=== PATIENT | female | born 1965 | race Caucasian/White ===

== ENCOUNTER 2016-05-13 08:00 | Inpatient (IN) | payer BC ==
[2016-05-12 10:09] VITALS: BMI 31.7
--- NOTE | 2016-05-13 08:02 | HP ---
Admitting History and Physical - Admission Chief Complaint: Right hip OA x years History of Present Illness: 50 year old female presents today in regards to her right hip. Longstanding history of right hip osteoarthritis. Patient complains of pain, stiffness, limited ROM and difficulty ambulating. Patient has failed conservative treatment including PO medication, exercise and activity modification. At this point patient would like to proceed with a right total hip arthroplasty ( MAKOplasty). History Source: Patient - Past Medical History ...LMP Comment: 2015 ...: No Psych: Yes: Other (Insomnia) - Past Surgical History Additional Past Surgical History: see written H&P - Smoking History Smoking history: Former smoker Have you smoked in the past 12 months: No Aproximately how many cigarettes per day: 40 If you are a former smoker, when did you quit?: 2006 - Alcohol/Substance Use Hx Alcohol Use: Yes (OCCASIONALLY) Home Medications - Allergies Allergies/Adverse Reactions: Allergies Allergy/AdvReac Type Severity Reaction Status Date / Time No Known Drug Allergies Allergy Verified 05/12/16 09:51 - Home Medications Home Medications: Ambulatory Orders Ondansetron [Zofran Odt -] 4 mg SL TID PRN #10 od.tablet 06/17/15 Naproxen [Naprosyn -] 500 mg PO BID 05/12/16 Zolpidem Tartrate [Ambien] 10 mg PO HS 05/12/16 Review of Systems - Review of Systems Musculoskeletal: reports: Decreased ROM, Joint Pain (right hip) Physical Examination Constitutional: Yes: Well Nourished, No Distress Eyes: Yes: Conjunctiva Clear HENT: Yes: Atraumatic, Normocephalic Neck: Yes: Supple Cardiovascular: Yes: Regular Rate and Rhythm Respiratory: Yes: Regular Gastrointestinal: Yes: Soft ...Rectal Exam: Yes: Deferred Musculoskeletal: Yes: Joint Stiffness (Right hip) Assessment/Plan 50 year old female with longstanding history of right hip osteoarthritis. Patient has failed all conservative treatment options. Proceed with a right total hip arthroplasty (MAKOplasty).
[2016-05-13] MEDS ORDERED: GABAPENTIN 300 MG CAPSULE (FP) PO ONE (12:46)
[2016-05-13] MEDS ORDERED: CEFAZOLIN 2 GM in DEXTROSE 5%-WATER - 50 ML IVPB ONE (12:46)
[2016-05-13] MEDS ORDERED: oxyCODONE HCL 10 MG SUSTAINED ACTING TABLET PO ONE (12:46)
[2016-05-13] MEDS ORDERED: CELECOXIB 200 MG CAPSULE PO ONE (12:46)
[2016-05-13] MEDS ORDERED: ROPIVICAINE 0.2%/MORPH PF/KETOROLAC - 51ML DISP.SYRINGE IA ONE (12:46)
[2016-05-13] MEDS ORDERED: TRANEXAMIC ACID 1000 MG/10 ML VIAL IVPUSH ONE (12:46)
[2016-05-13] MEDS ORDERED: MIDAZOLAM HCL 2 MG/2 ML SINGLE DOSE VIAL ONE ×4 (12:48→16:19)
[2016-05-13] MEDS ORDERED: EPINEPHrine/PF 1 MG/1 ML (1:1,000) AMPULE ONE (12:49)
[2016-05-13] MEDS ORDERED: BUPIVACAINE HCL/PF (5 MG/ML) 30 ML VIAL IJ ONE (12:49)
[2016-05-13] MEDS ORDERED: DEXAMETHASONE SOD PHOSPHATE/PF 10 MG/ML SDV ONE (12:49)
[2016-05-13] MEDS ORDERED: PROPOFOL 20 ML ONE ×6 (12:59→16:53)
[2016-05-13] MEDS ORDERED: oxyCODONE HCL 5 MG TABLET PO PRN (13:35)
[2016-05-13] MEDS ORDERED: ACETAMINOPHEN 325 MG TABLET (FP) PO SCH (13:45)
[2016-05-13] MEDS ORDERED: ONDANSETRON 4 MG/2 ML VIAL IVPB PRN (18:01)
[2016-05-13] MEDS ORDERED: MAG HYDROX/AL HYDROX/SIMETH 30 ML UNIT-DOSE CUP PO PRN (18:01)
[2016-05-13] MEDS ORDERED: MAGNESIUM HYDROX 2400MG/30ML ORAL SUSPENSION 30 ML CUP PO PRN (18:01)
--- NOTE | 2016-05-13 18:01 | OP ---
Operative Note - Note: Operative Date: 05/13/16 Pre-Operative Diagnosis: right hip OA Operation: right DEREK MAKOplasty Post-Operative Diagnosis: Same as Pre-op Surgeon: Jesus Drake Therapeutic Sales Specialist: Rosa Tyler Anesthesia: Spinal Estimated Blood Loss (mls): 200
[2016-05-13] MEDS ORDERED: LACTATED RINGERS SOLUTION 1,000 ML IV SCH (18:15)
[2016-05-13] MEDS ORDERED: ONDANSETRON 4 MG/2 ML VIAL IVPUSH ONE (18:28)
[2016-05-13] MEDS ORDERED: ONDANSETRON 4 MG/2 ML VIAL ONE (18:29)
[2016-05-13] MEDS: ACETAMINOPHEN 325 MG TABLET (FP) PO SCH (18:30)
[2016-05-13] MEDS ORDERED: KETOROLAC TROMETHAMINE 30 MG/1 ML VIAL ONE (18:30)
[2016-05-13] MEDS ORDERED: traMADol HCL 50 MG TABLET ONE (18:30)
[2016-05-13] MEDS: traMADol HCL 50 MG TABLET PO SCH (18:30)
[2016-05-13] MEDS: KETOROLAC TROMETHAMINE 30 MG/1 ML VIAL IVPUSH SCH (18:30)
[2016-05-13] MEDS: oxyCODONE HCL 5 MG TABLET PO PRN (19:35)
[2016-05-13] MEDS: GABAPENTIN 300 MG CAPSULE (FP) PO SCH (21:38)
[2016-05-13] MEDS: CEFAZOLIN 2 GM/D5W 50 ML IVPB SCH (21:38)
[2016-05-13] MEDS: SENNOSIDES/DOCUSATE COMBO (SENNA PLUS) TABLET (UD) PO SCH (21:38)
[2016-05-13] MEDS: ASCORBIC ACID 500 MG TABLET (FP) PO SCH (21:38)
[2016-05-13] MEDS: CELECOXIB 200 MG CAPSULE PO SCH (21:38)
[2016-05-13] MEDS: oxyCODONE HCL 10 MG SUSTAINED ACTING TABLET PO SCH (21:39)
[2016-05-13] MEDS: FERROUS SO4 325 MG TABLET (FP) PO SCH (21:40)
[2016-05-13] MEDS ORDERED: GABAPENTIN 300 MG CAPSULE (FP) PO SCH (22:00)
[2016-05-14] MEDS: ACETAMINOPHEN 325 MG TABLET (FP) PO SCH ×4 (00:08→17:34)
[2016-05-14] MEDS: KETOROLAC TROMETHAMINE 30 MG/1 ML VIAL IVPUSH SCH ×3 (00:10→13:15)
[2016-05-14] MEDS: traMADol HCL 50 MG TABLET PO SCH ×4 (00:11→17:33)
[2016-05-14] MEDS: oxyCODONE HCL 5 MG TABLET PO PRN ×2 (01:58→09:23)
[2016-05-14] MEDS: CEFAZOLIN 2 GM/D5W 50 ML IVPB SCH (05:40)
[2016-05-14] MEDS: ASPIRIN 325 MG TABLET PO SCH (08:08)
[2016-05-14 08:37] LABS: CALCIUM 8.9 mg/dl (8.4-10.2); COCKROFT - GAULT 113.9255; CREATININE 0.8 mg/dl (0.6-1.3)
[2016-05-14 08:53] LABS: MCH 28.9 pg (25.7-33.7); MCHC 32.9 g/dl (32.0-36.0); MEAN CELL VOLUME 87.8 fl (80-96); MEAN PLT VOLUME 10.8 fl (7.5-11.1); PLATELET COUNT 293 K/MM3 (134-434); RDW 12.9 % (11.6-15.6); WHITE BLOOD COUNT 9.8 K/mm3 (4.0-10.0)
[2016-05-14] MEDS: GABAPENTIN 300 MG CAPSULE (FP) PO SCH ×2 (09:22→21:51)
[2016-05-14] MEDS: MULTIVITAMINS (DAILY MVI) TABLET (FP) PO SCH (09:22)
[2016-05-14] MEDS: CELECOXIB 200 MG CAPSULE PO SCH ×2 (09:22→21:51)
[2016-05-14] MEDS: SENNOSIDES/DOCUSATE COMBO (SENNA PLUS) TABLET (UD) PO SCH ×2 (09:22→21:51)
[2016-05-14] MEDS: PANTOPRAZOLE 40 MG TABLET (FP) PO SCH (09:22)
[2016-05-14] MEDS: oxyCODONE HCL 10 MG SUSTAINED ACTING TABLET PO SCH ×2 (09:23→21:51)
[2016-05-14] MEDS: ASCORBIC ACID 500 MG TABLET (FP) PO SCH ×2 (09:23→21:51)
[2016-05-14] MEDS: FERROUS SO4 325 MG TABLET (FP) PO SCH ×2 (09:24→21:51)
--- NOTE | 2016-05-14 11:19 | PN ---
Progress Note (short form) - Note Progress Note: Pt seen and examined. Comfortable. AVSS Selected Entries 05/14/16 06:13 Temperature 97.9 F Pulse Rate 75 Respiratory 17 Rate Blood Pressure 109/54 O2 Sat by Pulse 99 Oximetry (%) Oxygen Delivery Nasal Cannula Method Laboratory Tests 05/14/16 05/14/16 07:00 07:00 WBC 9.8 Hgb 11.7 Hct 35.5 Plt Count 293 Sodium 135 L Potassium 4.1 Chloride 103 Carbon Dioxide 27 Anion Gap 5 L BUN 10 Creatinine 0.8 Random Glucose 108 H Calcium 8.9 Gen: NAD RLE: c/d/i, NVID A/P 50yo female POD#1 s/p R DEREK 1. PT/OOB - WBAT RLE 2. Plan for d/c home tomorrow
--- NOTE | 2016-05-14 17:29 | PN ---
Progress Note (short form) - Note Progress Note: S: pt. comfortable in a chair. no c/o O: VAS 0/10-5/10 pain A/p: pod number 1 s/p right thr 1. continue pain meds as ordered 2. no anesthetic cx
[2016-05-15] MEDS: traMADol HCL 50 MG TABLET PO SCH ×3 (00:22→12:15)
[2016-05-15] MEDS: ACETAMINOPHEN 325 MG TABLET (FP) PO SCH ×3 (00:39→12:30)
[2016-05-15 06:28] VITALS: BP 105/50; PULSE 69; TEMP 98.9
[2016-05-15 07:38] LABS: MCHC 33.8 g/dl (32.0-36.0); MEAN CELL VOLUME 88.7 fl (80-96); MEAN PLT VOLUME 9.8 fl (7.5-11.1); PLATELET COUNT 211 K/MM3 (134-434); RDW 13.1 % (11.6-15.6); WHITE BLOOD COUNT 7.4 K/mm3 (4.0-10.0)
[2016-05-15] MEDS: ASPIRIN 325 MG TABLET PO SCH (08:00)
[2016-05-15] MEDS: PANTOPRAZOLE 40 MG TABLET (FP) PO SCH (10:00)
[2016-05-15] MEDS: ASCORBIC ACID 500 MG TABLET (FP) PO SCH (10:00)
[2016-05-15] MEDS: FERROUS SO4 325 MG TABLET (FP) PO SCH (10:00)
[2016-05-15] MEDS: SENNOSIDES/DOCUSATE COMBO (SENNA PLUS) TABLET (UD) PO SCH (10:00)
[2016-05-15] MEDS: GABAPENTIN 300 MG CAPSULE (FP) PO SCH (10:00)
[2016-05-15] MEDS: CELECOXIB 200 MG CAPSULE PO SCH (10:00)
[2016-05-15] MEDS: oxyCODONE HCL 10 MG SUSTAINED ACTING TABLET PO SCH (10:00)
[2016-05-15] MEDS: MULTIVITAMINS (DAILY MVI) TABLET (FP) PO SCH (10:00)
--- NOTE | 2016-05-15 13:35 | PN ---
Progress Note (short form) - Note Progress Note: Pt seen and examined. Comfortable. AVSS Selected Entries 05/15/16 05/15/16 06:27 09:00 Temperature 98.9 F Pulse Rate 69 Respiratory 18 Rate Blood Pressure 105/50 O2 Sat by Pulse 96 Oximetry (%) Oxygen Delivery Room Air Method Laboratory Tests 05/15/16 07:29 WBC 7.4 Hgb 10.2 L D Hct 30.1 L D Plt Count 211 D Gen: NAD RLE: c/d/i, NVID A/P 50yo female POD#2 s/p R DEREK 1. PT/OOB - WBAT RLE 2. d/c home today
--- NOTE | 2016-05-15 13:36 | DS ---
Physical Examination Vital Signs: Vital Signs Temperature 98.9 F 05/15/16 06:27 Pulse Rate 69 05/15/16 06:27 Respiratory Rate 18 05/15/16 09:00 Blood Pressure 105/50 05/15/16 06:27 O2 Sat by Pulse Oximetry (%) 96 05/15/16 09:00 Labs: CBC, BMP 05/15/16 07:29 05/14/16 07:00 Discharge Summary Reason For Visit: RIGHT HIP OSTEOARTHRITIS Procedures: Principal: total hip replacement Hospital Course: Admitted for elective surgery. Procedure performed without complications. Pt received postoperative antibiotic prophylaxis and DVT ppx. Ambulated with physical therapy. Stable for discharge home with outpatient followup. Condition: Stable - Instructions Diet, Activity, Other Instructions: Dr Drake - Hip Replacement Instructions Keep the Aquacel dressing on until removed by Dr. Drake in 10-14 days - it is antibacterial and waterproof and you can shower with it on. Call the office for a follow-up appointment with Dr. Drake in 10-14 days. [phone] Take one Aspirin 325mg daily for 6 weeks to prevent blood clots in your legs. Take one Pantoprazole 40mg daily for 6 weeks to protect against heartburn and ulcers. Take Celebrex 200mg twice daily for 30 days to reduce swelling and inflammation. Take a multivitamin daily as well as an additional vitamin C supplement. Make sure you eat plenty of protein daily. You can also add in a protein shake between meals. For pain: *Mild pain (1-3/10): Take 1 Tramadol tablet every 4 hours as needed. Moderate pain (4-6/10): Take 1 Tramadol tablet and 1 Percocet tablet every 4 hours as needed. Severe pain (7-10/10): Take 1 Tramadol tablet and 2 Percocet tablets every 4 hours as needed. Activity: You can put as much weight on the operative leg as you want.~ For the first 6 weeks, all you need to do is walk around the house, go up/down stairs, and sit down/get up. After 6 weeks when everything is healed (and bone has grown into the implant) you will be sent for more intensive outpatient physical therapy. Always use a walker or cane for balance and to prevent falls. Disposition: HOME - Home Medications Comprehensive Discharge Medication List: Ambulatory Orders Zolpidem Tartrate [Ambien] 10 mg PO HS 05/12/16 Ascorbic Acid [Vitamin C -] 500 mg PO BID tablet 05/15/16 Aspirin [ASA -] 325 mg PO DAILY@0800 #40 tablet 05/15/16 Celecoxib [CeleBREX -] 200 mg PO BID #60 tab 05/15/16 Multivitamins [Multivit ([facility] Formulary)] 1 tab PO DAILY tab 05/15/16 Oxycodone HCl/Acetaminophen [Percocet 5-325 mg Tablet] 1 - 2 tab PO Q4H PRN #60 tablet MDD 10 05/15/16 Pantoprazole Sodium [Protonix -] 40 mg PO DAILY #40 tab 05/15/16 Sennosides/Docusate Sodium [Pericolace -] 1 tablet PO BID tablet 05/15/16 Tramadol HCl [Ultram -] 50 mg PO Q4H PRN #90 tablet MDD 6 05/15/16
--- NOTE | 2016-05-19 10:50 | SURG ---
Surgery Wood Machinist Note Wood Machinist: Rosa Tyler PA-C Date of Service: 05/13/16 Diagnosis: right hip OA Procedure: right DEREK MAKAdelso I was present for the entirety of the operative procedure. For further detail, please refer to operative report. Visit type - Case Type Case Type: Scheduled Admission - Emergency Emergency Visit: No - New patient This patient is new to me today: Yes Date on this admission: 05/13/16 - Critical Care Critical Care patient: No
--- NOTE | 2016-05-19 13:18 | PATH ---
Surgical Pathology Report Patient Name: EMMA HERMAN Med. Rec. #: [id number] /Age/Gender: 1965 (Age: 50) / F Account: [id number] Location: [facility] Taken: 05/13/2016 Received: 05/13/2016 Reported: 05/19/2016 Physicians: Jesus Drake M.D. Specimen(s) Received RIGHT FEMORAL HEAD Clinical History Right hip osteoarthritis Final Diagnosis FEMORAL HEAD, RIGHT, TOTAL HIP REPLACEMENT: DEGENERATIVE JOINT DISEASE. Electronically Signed Perla Martinez M.D. Gross Description Received in formalin, labeled "right femoral head," is a 4.2 4.2 x 4.0 cm. femoral head with 1.1 cm in length portion of femoral neck attached. The margin of resection is smooth. There is a 1.7 cm in greatest dimension area of eburnation present. The remaining articular surface is mejia-yellow and diffusely granular. The underlying trabecular bone is yellow and hard. Senior Market Research Analyst sections are submitted in one cassette, following decalcification. 05/14/201605/14/2016
--- NOTE | 2016-06-24 15:19 | SPEC ---
DATE OF OPERATION: 05/13/2016 PREOPERATIVE DIAGNOSIS: Right hip osteoarthritis. POSTOPERATIVE DIAGNOSIS: Right hip osteoarthritis. PROCEDURE: Right total hip replacement with MAKOplasty, robotic navigation. ATTENDING DOCTOR: Lui Hair MD MASSAGE COORDINATOR: ULI Watson ANESTHESIA: Spinal plus sedation. ESTIMATED BLOOD LOSS: 200 mL. COMPLICATIONS: None. SPECIMENS: Resected bone was sent for pathology analysis. DISPOSITION: The patient was transferred to the PACU in stable condition. IMPLANTS USED: Reydon Accolade II, size 3 femoral component, 50-mm Tritanium acetabular component, with 36 + 2.5 mm ceramic head ball, and 40-mm acetabular screw. INDICATIONS: This is a 50-year-old female who presented to the office complaining of right hip and groin pain. She was seen and examined by Dr. Hair and diagnosed with right hip osteoarthritis. She was initially treated nonoperatively, but failed management with medications, injections, and physical therapy. She was subsequently indicated for a right total hip replacement with MAKOplasty robotic navigation. The risks, benefits, and alternatives to the procedure were explained to the patient in great detail, and she elected to proceed with the surgery. DESCRIPTION OF PROCEDURE: On the day of surgery, the patient was taken to the operating room and placed on the OR table. Spinal anesthesia was administered by the anesthesiologist. The patient was then positioned in the lateral decubitus position on the table and all bony prominences were padded. An axillary roll was placed. The operative hip was then prepped and draped in the usual sterile fashion and intravenous antibiotics were given for infection prophylaxis. A surgical time-out was then performed with the team, and the patients identity, procedure, side, availability of implants, and the administration of antibiotics was confirmed. An approximately 15cm longitudinal incision was made through the skin centered on the greater trochanter of the hip. This dissection was carried down through the subcutaneous tissues to the deep fascia. This fascia was then incised and a cobra was placed around the inferior femoral neck. Electrocautery was used to reflect the anterior 40% of the gluteus medius and minimus starting at the musculotendinous junction and leaving a cuff for closure. This was reflected to reveal the capsule of the hip joint. An anterior capsulectomy was performed and the femoral head and neck was visualized. Grade 4 changes were noted diffusely throughout the joint. At this point, three small stab incisions were made superior to the main incision along the iliac crest. Three self-drilling Mikayla pins were then placed and the [employer] pelvic array was attached. Reference points on the limb were then entered into the robotic device and the limb length deficiency, offset, and femoral neck resection level were then calculated by the software. The hip was then dislocated with traction and external rotation, an oscillating saw was used to make the femoral neck cut at the level previously templated, and the femoral head was removed. Attention was then turned to the acetabulum. Retractors were then placed around the acetabulum and the labrum was removed. An acetabular checkpoint pin and the [employer] software was used to register the contours of the acetabulum. The acetabulum was then reamed in a single stage to the preoperatively templated size using the [employer] robotic arm. The appropriately sized cup was then impacted and had solid fixation as well as the preset inclination and version of 40 and 20 degrees, respectively. A polyethylene liner was then placed in the cup. Attention was then turned back to the femur, which was externally rotated for improved visualization. A femoral neck elevator was used to present the femoral neck cut, a box osteotome was used to enter the femoral canal, and a canal finder was used to go down the femoral shaft. The Chuck broaches were used sequentially until the optimal scratch fit was achieved. This correlated to the preoperatively templated size. From here, several different offset head and neck configurations were tested until excellent stability and length was obtained. These measurements were quantified using the [employer] software. All trial components were then removed, the femur was copiously irrigated, and the final components were placed. Leg length and stability were checked again and found to be excellent. Irrigation was performed again. Wound closure was started by repairing the abductor muscles with a No. 2 Fiberwire stitch in a [place] configuration passed through bone tunnels in the greater trochanter and tied over a bony bridge. This repair was then reinforced with a 0 VLoc 180 barbed suture. Next, No. 1 Polysorb and 0 VLoc 180 was used to close the fascia. The deep subcutaneous tissue was closed with No. 1 Polysorb sutures, and 2-0 Polysorb was used for the superficial subcutaneous tissue. The skin was closed using both 3-0 VLoc 90 suture in a running subcuticular fashion and SwiftSet skin adhesive. The Chuck array and pins were removed from the iliac crest and the stab incision sites were irrigated and closed with 4-0 Polysorb sutures and SwiftSet skin adhesive. Once this was completed a sterile dressing was applied. The patient was then awakened and taken to the PACU in stable condition. LUI HAIR M.D. [id number]
== END 2016-05-15 14:20 | disposition home or self-care (01) | DRG 470 ==
LOC: FM/S 09:29
PROVIDERS: ADMIT Student in an Organized Health Care Education/Training Program; ATTEND Student in an Organized Health Care Education/Training Program
PROC: 8E0W0CZ Robotic Assisted Procedure of Trunk Region, Open Approach (ICD-10-PCS; 2016-05-13)
PROC: 0SR904Z Replacement of Right Hip Joint with Ceramic on Polyethylene Synthetic Substitute, Open Approach (ICD-10-PCS; principal; 2016-05-13 11:20)
DX: M16.11 Unilateral primary osteoarthritis, right hip (principal); G47.09 Other insomnia; Z87.891 Personal history of nicotine dependence
CPT/HCPCS: 36415; 73502-TC-RT; 80048; 85027; 88304-TC; 88311-TC; 94010; 94760; 97116-GP; 97162-PG

== ENCOUNTER 2016-10-10 11:08 | Emergency (ER) | payer BC ==
[2016-10-10 11:22] VITALS: BP 131/80; PULSE 80; TEMP 98.3; BMI 32.5
[2016-10-10] MEDS ORDERED: ACETAMINOPHEN 325 MG TABLET (FP) PO ONE (11:43)
[2016-10-10] MEDS ORDERED: ACETAMINOPHEN 325 MG TABLET (FP) ONE (11:45)
--- NOTE | 2016-10-10 12:49 | PDOC ---
History of Present Illness - General Chief Complaint: Back Pain Stated Complaint: BACK PAIN Time Seen by Provider: 10/10/16 11:12 History Source: Patient Exam Limitations: No Limitations - History of Present Illness Initial Comments: 10/10/16 12:00 51-year-old female with history of herniated disks to her lumbar spine presents to the ED with complaints of left mid back intermittent sharp pain worsened with movement since awakening this morning. Patient states was babysitting her granddaughter and lifting her which she felt a burning sensation yesterday evening but did not take anything for the above and thought pain would get better. Patient states pain does not worsen throughout the night but then awoke this morning unable to move without discomfort. Patient denies anterior chest pain, shortness of breath, skin discoloration, swelling to the area, change in urine pattern, change in bowel pattern, fever or chills. Patient states took 10 mg of Flexeril which she had at home at 8am for her low back pain which didn't seem to alleviate her discomfort. Occurred: reports: this morning Severity: reports: moderate Pain Location: reports: back Method of Injury: Yes: other Modifying Factors: improves with: None Associated Symptoms (Fall): trouble walking Past History - Travel Traveled outside of the country in the last 30 days: No Close contact w/someone who was outside of country & ill: No - Past Medical History Allergies/Adverse Reactions: Allergies Allergy/AdvReac Type Severity Reaction Status Date / Time No Known Drug Allergies Allergy Verified 10/10/16 11:19 Home Medications: Ambulatory Orders Zolpidem Tartrate [Ambien] 10 mg PO HS 05/12/16 Ascorbic Acid [Vitamin C -] 500 mg PO BID tablet 05/15/16 Aspirin [ASA -] 325 mg PO DAILY@0800 #40 tablet 05/15/16 Celecoxib [CeleBREX -] 200 mg PO BID #60 tab 05/15/16 Multivitamins [Multivit ([facility] Formulary)] 1 tab PO DAILY tab 05/15/16 Oxycodone HCl/Acetaminophen [Percocet 5-325 mg Tablet] 1 - 2 tab PO Q4H PRN #60 tablet MDD 10 05/15/16 Pantoprazole Sodium [Protonix -] 40 mg PO DAILY #40 tab 05/15/16 Sennosides/Docusate Sodium [Pericolace -] 1 tablet PO BID tablet 05/15/16 Tramadol HCl [Ultram -] 50 mg PO Q4H PRN #90 tablet MDD 6 05/15/16 Anemia: No Asthma: No Cancer: No Cardiac Disorders: Yes (IRREGULAR HRT BEAT AFTER NASAL SEPTUM REPAIR NO FURTHER PROBLEMS) CVA: No COPD: No CHF: No Dementia: No Diabetes: No GI Disorders: No Disorders: No HTN: No Hypercholesterolemia: No Liver Disease: No Suicide Attempt (Hx): No Seizures: No Thyroid Disease: Yes (HYPERTHYROIDISM) - Surgical History Abdominal Surgery: Yes (CYST NEAR PANCREAS REMOVED-02/2015) Appendectomy: No Cardiac Surgery: No Cholecystectomy: No Lung Surgery: No Neurologic Surgery: No Orthopedic Surgery: No - Immunization History Immunization Up to Date: No - Psycho/Social/Smoking Cessation Hx Anxiety: No Suicidal Ideation: No Smoking History: Never smoked Have you smoked in the past 12 months: No Number of Cigarettes Smoked Daily: 40 If you are a former smoker, when did you quit?: 2007 Cigars Per Day: 0 Information on smoking cessation initiated: No Hx Alcohol Use: Yes (OCCASIONALLY) Drug/Substance Use Hx: No Substance Use Type: Alcohol Hx Substance Use Treatment: No Patient Lives Alone: No Lives with/in: spouse/SO Review of Systems - Review of Systems Able to Perform ROS?: Yes Constitutional: No: Symptoms Reported HEENTM: No: Symptoms Reported Respiratory: No: Symptoms reported Cardiac (ROS): No: Symptoms Reported ABD/GI: No: Symptoms Reported : No: Symptoms Reported Musculoskeletal: Yes: Muscle Pain. No: Joint Pain, Neck Pain Integumentary: No: Symptoms Reported Neurological: No: Symptoms reported Endocrine: No: Symptoms Reported Hematologic/Lymphatic: No: Symptoms Reported *Physical Exam - Vital Signs Last Vital Signs Temp Pulse Resp BP Pulse Ox 98.3 F 80 18 131/80 95 10/10/16 11:19 10/10/16 11:19 10/10/16 11:19 10/10/16 11:10/10/16 11:19 - Physical Exam General Appearance: Yes: Nourished, Appropriately Dressed. No: Apparent Distress HEENT: positive: EOMI, ANTIONETTE, TMs Normal, Pharynx Normal. negative: Pale Conjunctivae Neck: positive: Supple. negative: Decreased range of motion Respiratory/Chest: positive: Lungs Clear, Normal Breath Sounds. negative: Respiratory Distress, Accessory Muscle Use Cardiovascular: positive: Regular Rhythm, Regular Rate. negative: Murmur Gastrointestinal/Abdominal: positive: Soft. negative: Tenderness Musculoskeletal: positive: Muscle Spasm (left upper lumbar /lower thoracic). negative: Vertebral Tenderness Extremity: positive: Normal Capillary Refill. negative: Pedal Edema Integumentary: positive: Normal Color, Warm, Moist Neurologic: positive: Normal Mood/Affect, Motor Strength 5/5 (ambulatory) ED Treatment Course - Medications Given in the ED: ED Medications Discontinued Medications Generic Name Dose Route Start Last Admin Trade Name Jihan PRN Reason Stop Dose Admin Acetaminophen 650 mg 10/10/16 11:43 10/10/16 11:48 Tylenol - PO 10/10/16 11:44 650 mg ONCE ONE Administration Oxycodone/Acetaminophen 1 combo 10/10/16 11:43 10/10/16 11:47 Percocet 5/325 - PO 10/10/16 11:44 1 combo ONCE ONE Administration Medical Decision Making - Medical Decision Making 10/10/16 12:56 Patient with intermittent low back pain for the past 2 years. Patient states has herniations of discs in her upper lumbar region and does not take medications on a regular basis for the above. Patient did lift her granddaughter throughout the day yesterday which she states did initiate the discomfort to the area. Patient on exam had reproducible left thoracic pain to the paraspinous muscles at T12-L1 level. Skin otherwise intact. Patient had no CVA tenderness on exam or difficulty breathing but states pain is worsened with movement and deep breathing. Patient was ordered for 1 Percocet and Tylenol. 10/10/16 15:24 Patient had to receive a dose of Valium along with an injection of Toradol for moderate relief of discomfort. Patient is now ambulatory to the bathroom with moderate to mild discomfort. Patient to be discharged home with the same regimen and supportive care junctions given. *DC/Admit/Observation/Transfer Diagnosis at time of Disposition: Back spasm - Discharge Dispostion Disposition: HOME Condition at time of disposition: Improved - Referrals Referrals: Angus nSyder [Primary Care Provider] - - Patient Instructions Printed Discharge Instructions: DI for Back Spasm Additional Instructions: At this time I do recommend to continue the same regimen at home applying ice to the affected area but allowing yourself to move about to avoid stiffening. his symptoms worsen or return you may come back to the ER . otherwise follow up with her primary care physician.
[2016-10-10] MEDS ORDERED: diazePAM 5 MG TABLET PO ONE (13:12)
[2016-10-10] MEDS ORDERED: diazePAM 5 MG TABLET ONE (13:16)
[2016-10-10] MEDS ORDERED: KETOROLAC TROMETHAMINE 60 MG/2 ML VIAL IM ONE (13:50)
[2016-10-10] MEDS ORDERED: KETOROLAC TROMETHAMINE 60 MG/2 ML VIAL ONE (13:58)
== END 2016-10-10 15:53 | disposition home or self-care (01) ==
LOC: JER 11:08
PROC: 3E0233Z Introduction of Anti-inflammatory into Muscle, Percutaneous Approach (ICD-10-PCS; principal; 2016-10-10)
DX: M62.830 Muscle spasm of back (principal); X50.0XXA Overexertion from strenuous movement or load, initial encounter; Y93.F2 Activity, caregiving, lifting; Y92.89 Other specified places as the place of occurrence of the external cause
CPT/HCPCS: 99282-25

== ENCOUNTER 2017-12-27 10:41 | Emergency (ER) | payer BC ==
--- NOTE | 2017-12-27 10:54 | PDOC ---
History of Present Illness - General Chief Complaint: Wound Stated Complaint: cyst - History of Present Illness Initial Comments: The patient is a 52F w/ a history of peripancreatic cyst s/p removal who presents for evaluation of a left labial mass that has been present for the past three weeks. She tried placing warm compresses on the area with some initial improvement and subsequent exacerbation. She denies noticing any drainage from the site despite trying to express fluid manually. She denies having had this lesions procedurally opened/expressed previously. Denies fevers, chills, TAVARES, chest pain, SOB, abdominal pain, dysuria, vaginal discharge, drainage from the affected area, or any other areas of concern 12/27/17 12:41 Past History - Past Medical History Allergies/Adverse Reactions: Allergies Allergy/AdvReac Type Severity Reaction Status Date / Time No Known Drug Allergies Allergy Verified 12/27/17 11:05 Home Medications: Ambulatory Orders NK [No Known Home Medication] 12/27/17 Anemia: No Asthma: No Cancer: No Cardiac Disorders: Yes (IRREGULAR HRT BEAT AFTER NASAL SEPTUM REPAIR NO FURTHER PROBLEMS) CVA: No COPD: No CHF: No Dementia: No Diabetes: No GI Disorders: No Disorders: No HTN: No Hypercholesterolemia: No Liver Disease: No Seizures: No Thyroid Disease: Yes (HYPERTHYROIDISM) - Surgical History Abdominal Surgery: Yes (CYST NEAR PANCREAS REMOVED-02/2015) Appendectomy: No Cardiac Surgery: No Cholecystectomy: No Lung Surgery: No Neurologic Surgery: No Orthopedic Surgery: No - Immunization History Immunization Up to Date: No - Suicide/Smoking/Psychosocial Hx Smoking History: Never smoked Have you smoked in the past 12 months: No Number of Cigarettes Smoked Daily: 40 If you are a former smoker, when did you quit?: 2007 Cigars Per Day: 0 Hx Alcohol Use: Yes (OCCASIONALLY) Drug/Substance Use Hx: No Substance Use Type: Alcohol Hx Substance Use Treatment: No Review of Systems - Review of Systems Able to Perform ROS?: Yes Comments:: GENERAL/CONSTITUTIONAL: No fever or chills. No weakness HEAD, EYES, EARS, NOSE AND THROAT: No change in vision. No ear pain or discharge. No sore throat CARDIOVASCULAR: No chest pain or shortness of breath RESPIRATORY: No cough, wheezing, or hemoptysis GASTROINTESTINAL: No nausea, vomiting, diarrhea or constipation GENITOURINARY: No dysuria, frequency, or change in urination MUSCULOSKELETAL: No joint or muscle swelling or pain. No neck or back pain SKIN: No rash NEUROLOGIC: No headache, vertigo, loss of consciousness, or change in strength/ sensation ENDOCRINE: No increased thirst. No abnormal weight change HEMATOLOGIC/LYMPHATIC: No anemia, easy bleeding, or history of blood clots ALLERGIC/IMMUNOLOGIC: No hives or skin allergy 12/27/17 12:37 Is the patient limited Yakut proficient: No *Physical Exam - Vital Signs Vital Signs Temp Pulse Resp BP Pulse Ox 98.8 F 86 18 146/94 98 12/27/17 10:42 12/27/17 10:42 12/27/17 10:42 12/27/17 10:42 12/27/17 10:42 12/27/17 12:35 - Physical Exam Comments: GENERAL: Awake, alert, and fully oriented, in no acute distress HEAD: No signs of trauma, normocephalic, atraumatic EYES: PERRLA, EOMI, sclera anicteric, conjunctiva clear ENT: Hearing grossly normal, nares patent, oropharynx clear without exudates. Moist mucosa LUNGS: No distress, speaks full sentences, clear to auscultation bilaterally HEART: Regular rate and rhythm, normal S1 and S2, no murmurs, rubs or gallops, peripheral pulses normal and equal bilaterally ABDOMEN: Soft, nontender, normoactive bowel sounds. No guarding, no rebound EXTREMITIES : Normal inspection, Normal range of motion, no edema. No clubbing or cyanosis NEUROLOGICAL: Cranial nerves II through XII grossly intact. Normal speech, normal gait, no focal sensorimotor deficits SKIN: L labial abscess, 1.5cm x 1.5cm with fluctuance; no streaking from the affected area; no active drainage 12/27/17 12:35 Procedures - Incision and Drainage I&D Site: Left: Other (Labial) Anesthesia: 1% Lidocaine Volume(ml): 3 Blade Size: 11 Attempts: 1 Iodinated Packin/4 in Complications: none Dressing: Yes (dry gauze) Progress: Indication: Abscess Aadc Plans Staff Officer: Homer Martinez MD Artists' Model: Dr. Ch Indications, risks, and benefits explained to patient and verbal informed consent obtained. Correct patient and procedure type was verified. 1) The patient was anesthetized using 3 cc lidocaine 1% w/epinephrine 2) Abscess Location: Left labia 3) Abscess Size: 1.5cm x 1.5cm 4) Procedure description: 1 incision was made with an 11 blade. Approximately 2cc of purulent material was expressed. Wound was packed with 1/4in iodoform and dry gauze was placed over. 5) Culture specimen(s) obtained and sent for testing? No A clean dressing was applied. The patient tolerated the procedure with some discomfort. 12/27/17 12:33 Medical Decision Making - Medical Decision Making The patient is a 52F w/ a history of peripancreatic cyst, s/p neck cyst removal , who presents for evaluation of left labial recurrent cyst concerning for abscess Left labial abscess -s/p I&D. Please refer to procedure note for full details -Wound care instructions given Plan for D/C w/ PCP and OBGYN referrals Discharge instructions and return precautions given Patient is in agreement and verbalized understanding Dispo: Home 12/27/17 12:37 *DC/Admit/Observation/Transfer Diagnosis at time of Disposition: Labial abscess - Discharge Dispostion Disposition: HOME Condition at time of disposition: Improved Decision to Admit order: No - Referrals Referrals: Nyasia Hadley MD [Staff Physician] - [facility] – [place] [facility] [Provider Group] Leidy Olmstead MD [Provisional Medical Staff] - Nisa White MD [Non Staff, Medical] - Mariangel Robertson MD [Staff Physician] - - Patient Instructions Printed Discharge Instructions: DI for Incision and Drainage of a Skin Abscess Additional Instructions: You were seen in the Emergency Department today for a left labial abscess. The abscess was drained and packed with iodoform. Remove the packing after three days. Please return to the Emergency Department or follow up with a primary or OBGYN within 3 days for wound check. Review the handout provided at discharge. Return to the Emergency Department if you develop fevers/chills, worsening pain , persistent bleeding from the wound, worsening swelling or redness near the wound, or any new/concerning symptoms. - Post Discharge Activity
[2017-12-27 11:03] VITALS: BP 146/94; PULSE 86; TEMP 98.8; BMI 32.5
--- NOTE | 2017-12-27 11:43 | PDOC ---
Attending Attestation - Resident Resident Name: Homer Martinez - ED Attending Attestation I have performed the following: I have examined & evaluated the patient, The case was reviewed & discussed with the resident, I agree w/resident's findings & plan - HPI HPI: 12/27/17 11:40 52-year-old female with no significant past medical history presents with left labial cyst intermittently for several weeks, worsening over 2-3 days. Last shaved the area about 3 weeks ago, has had intermittent discomfort and swelling since then, attempted to drain it a few days ago and it has acutely worsened over the last 2 or 3 days, presenting now with painful swelling. No pus or bleeding, no fevers or chills, no significant expansion of the redness or swelling. No history of known MRSA, has had a cyst drained from her right neck in the past but never had a labial cyst or abscess drained. No fevers or chills, no vaginal discharge or bleeding. - Physicial Exam PE: 12/27/17 11:41 Vital signs normal Well-appearing Perineum: Exam performed with nurse library information technician in the room, patient has indurated and fluctuance 2 cm external left labial abscess, no surrounding cellulitis and no significant labial swelling. No notable lymphadenopathy, vaginal mucosa is otherwise normal-appearing. - Medical Decision Making 12/27/17 11:42 52-year-old female with external left labial abscess, otherwise uncomplicated without evidence of bacteremia or sepsis. Likely infected hair follicle. 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
== END 2017-12-27 12:13 | disposition home or self-care (01) ==
LOC: FER 10:41
PROC: 0U9M0ZZ Drainage of Vulva, Open Approach (ICD-10-PCS; principal; 2017-12-27)
DX: N76.4 Abscess of vulva (principal); E05.90 Thyrotoxicosis, unspecified without thyrotoxic crisis or storm
CPT/HCPCS: 99283-25

== ENCOUNTER 2019-01-02 08:37 | Emergency (ER) | payer BC ==
[2019-01-02] MEDS ORDERED: KETOROLAC TROMETHAMINE 30 MG/1 ML VIAL IVPUSH ONE (08:59)
[2019-01-02 09:01] VITALS: TEMP 98; BMI 33.5
--- NOTE | 2019-01-02 09:10 | PDOC ---
History of Present Illness - General Chief Complaint: Pain, Acute Stated Complaint: BACK PAIN Time Seen by Provider: 01/02/19 08:56 History Source: Patient - History of Present Illness Timing/Duration: reports: getting worse Abdominal Pain Onset Location: reports: flank Past History - Past Medical History Allergies/Adverse Reactions: Allergies Allergy/AdvReac Type Severity Reaction Status Date / Time No Known Drug Allergies Allergy Verified 01/02/19 08:53 Home Medications: Ambulatory Orders Cyclobenzaprine HCl [Flexeril 10 mg] 10 mg PO HS #9 tablet 01/02/19 Ibuprofen [Motrin -] 800 mg PO Q6H #30 tablet 01/02/19 Tramadol HCl 50 mg PO Q6H #15 tablet MDD 200 mg 01/02/19 Anemia: No Asthma: No Cancer: No Cardiac Disorders: Yes (IRREGULAR HRT BEAT AFTER NASAL SEPTUM REPAIR NO FURTHER PROBLEMS) CVA: No COPD: No CHF: No Dementia: No Diabetes: No GI Disorders: No Disorders: No HTN: No Hypercholesterolemia: No Liver Disease: No Seizures: No Thyroid Disease: Yes (HYPERTHYROIDISM) - Surgical History Abdominal Surgery: Yes (CYST NEAR PANCREAS REMOVED-02/2015) Appendectomy: No Cardiac Surgery: No Cholecystectomy: No Lung Surgery: No Neurologic Surgery: No Orthopedic Surgery: No - Immunization History Immunization Up to Date: No - Psycho Social/Smoking Cessation Hx Smoking History: Never smoked Have you smoked in the past 12 months: No Number of Cigarettes Smoked Daily: 40 If you are a former smoker, when did you quit?: 2007 Cigars Per Day: 0 Hx Alcohol Use: Yes (OCCASIONALLY) Drug/Substance Use Hx: No Substance Use Type: Alcohol Hx Substance Use Treatment: No Abd/GI Specific PMHX - Complaint Specific PMHX GERD: No Pancreatitis: No Review of Systems - Review of Systems Constitutional: No: Fever ABD/GI: No: Blood Streaked Bowels, Constipated, Diarrhea, Nausea, Vomiting, Abdominal cramping : Yes: Flank Pain. No: Burning, Dysuria, Discharge, Frequency, Hematuria *Physical Exam - Vital Signs Last Vital Signs Temp Pulse Resp BP Pulse Ox 98.0 F 80 16 156/84 99 01/02/19 08:49 01/02/19 08:49 01/02/19 08:49 01/02/19 08:49 01/02/19 08:49 - Physical Exam General Appearance: Yes: Moderate Distress HEENT: positive: Normal Voice Neck: positive: Supple Respiratory/Chest: negative: Respiratory Distress Gastrointestinal/Abdominal: positive: Soft. negative: Tender Musculoskeletal: positive: CVA Tenderness, CVA Tenderness (L) Extremity: positive: Normal Inspection Integumentary: positive: Dry, Warm Neurologic: positive: Fully Oriented, Alert, Normal Mood/Affect ED Treatment Course - LABORATORY CBC & Chemistry Diagram: 01/02/19 09:30 01/02/19 09:30 - RADIOLOGY Radiology Studies Ordered: Category Date Time Status ABDOMEN & PELVIS CT W/O CONTR [CT] Stat CT Scan 01/02/19 09:00 Ordered Medical Decision Making - Medical Decision Making 01/02/19 09:04 53 yo F, s/p hysterectomy remotely, pancreatic cyst, chronic lower back pain, here w/ worsening L flank pain x 4 days. States pain was so severe this a.m she was unable to get out of bed, worse w/ movement. Denies nausea, vomiting, dysuria, hematuria or change in bowel movements. No recent trauma or other inciting factors. Took dose of naproxen w/ no relief. States current pain does not feel like her chronic back pain which is usually right lower back radiating to her leg and has not had that pain for 2 years. States she had MRI for her chronic back pain in the past that was normal see exam L flank pain ?MSK, r/o stone -pain control -labs -CT -reassess 01/02/19 12:[address] unremarkable, no e/o stone. Patient reports feeling better with meds and states she is okay going home with pain control and will follow-up with her PMD Discharge - Discharge Information Problems reviewed: Yes Clinical Impression/Diagnosis: Flank pain Condition: Improved Disposition: HOME - Additional Discharge Information Prescriptions: Cyclobenzaprine HCl [Flexeril 10 mg] 10 mg PO HS #9 tablet Ibuprofen [Motrin -] 800 mg PO Q6H #30 tablet Tramadol HCl 50 mg PO Q6H #15 tablet MDD 200 mg - Follow up/Referral - Patient Discharge Instructions Patient Printed Discharge Instructions: DI for Low Back Pain Additional Instructions: Your labs and CT were normal here. Please start taking Motrin and Flexeril for pain and if you need something stronger take tramadol as needed. Please follow-up with your PMD - Post Discharge Activity Work/Back to School Note: Back to Work
[2019-01-02] MEDS ORDERED: KETOROLAC TROMETHAMINE 30 MG/1 ML VIAL ONE (09:50)
[2019-01-02 09:53] LABS: BASO % 0.7 % (0-2.0); EOS % 2.4 % (0-4.5); HEMATOCRIT 40.3 % (32.4-45.2); HEMOGLOBIN 13.4 GM/dL (10.7-15.3); LYMPH % 22.7 % (8-40); MCH 29.4 pg (25.7-33.7); MCHC 33.2 g/dl (32.0-36.0); MEAN CELL VOLUME 88.5 fl (80-96); MEAN PLT VOLUME 9.2 fl (7.5-11.1); NEUT % 66.2 % (42.8-82.8); PLATELET COUNT 320 K/MM3 (134-434); RBC 4.56 M/mm3 (3.60-5.2); RDW 13.6 % (11.6-15.6); URINE APPEARANCE CLEAR; URINE BILIRUBIN NEGATIVE (NEGATIVE); URINE COLOR YELLOW; URINE GLUCOSE (UA) NEGATIVE (NEGATIVE); URINE KETONE NEGATIVE (NEGATIVE); URINE LEUK ESTERASE NEGATIVE (NEGATIVE); URINE NITRITE NEGATIVE (NEGATIVE); URINE PROTEIN NEGATIVE (NEGATIVE); URINE UROBILINOGEN 0.2 mg/dL (0.2-1.0)
[2019-01-02 10:22] LABS: ALBUMIN 4.3 g/dl (3.4-5.0); BILIRUBIN,TOTAL 0.3 mg/dL (0.2-1); BLOOD UREA NITROGEN 18.3 mg/dL (7-18); CALCIUM 9.4 mg/dL (8.5-10.1); CREATININE 0.8 mg/dL (0.55-1.3); POTASSIUM 4.1 mmol/L (3.5-5.1); TOT PROT 7.9 g/dl (6.4-8.2)
[2019-01-02] MEDS ORDERED: morphine CARPU-JECT 4 MG/1 ML DISP.SYRIN IVPUSH ONE (11:00)
[2019-01-02] MEDS ORDERED: MORPHINE SULFATE 2 MG/ML VIAL ONE (11:03)
[2019-01-02 12:55] VITALS: BP 140/70; PULSE 70
== END 2019-01-02 12:55 | disposition home or self-care (01) ==
LOC: JER 08:37
PROC: 3E033NZ Introduction of Analgesics, Hypnotics, Sedatives into Peripheral Vein, Percutaneous Approach (ICD-10-PCS; principal; 2019-01-02)
PROC: 3E0333Z Introduction of Anti-inflammatory into Peripheral Vein, Percutaneous Approach (ICD-10-PCS; 2019-01-02)
DX: E05.90 Thyrotoxicosis, unspecified without thyrotoxic crisis or storm (principal); R10.32 Left lower quadrant pain; M54.5 Low back pain; G89.29 Other chronic pain; Z87.19 Personal history of other diseases of the digestive system; Z90.710 Acquired absence of both cervix and uterus
CPT/HCPCS: 36415; 74176-TC; 80053; 81003; 85025; 87086; 99283-25

== ENCOUNTER 2019-04-12 20:05 | Emergency (ER) | payer BC ==
[2019-04-12 20:08] VITALS: TEMP 97.5; BMI 35.2
--- NOTE | 2019-04-12 20:08 | PDOC ---
Rapid Medical Evaluation Time Seen by Provider: 04/12/19 20:06 Medical Evaluation: Allergies Allergy/AdvReac Type Severity Reaction Status Date / Time No Known Drug Allergies Allergy Verified 01/02/19 08:53 04/12/19 20:07 I have performed a brief in-person evaluation of this patient. The patient presents with a chief complaint of: palpitations, nausea since today Pertinent physical exam findings: VSS I have ordered the following: ekg The patient will proceed to the ED for further evaluation. Discharge Disposition - Diagnosis Palpitations - Referrals - Patient Instructions - Post Discharge Activity
--- NOTE | 2019-04-12 20:20 | PDOC ---
History of Present Illness - General Chief Complaint: Palpitations Stated Complaint: PALPITATIONS / NAUSEA Time Seen by Provider: 04/12/19 20:06 - History of Present Illness Initial Comments: The pt is a 53F w/ a history of anxiety, s/p HYS, s/p BTL, s/p pancreatic cyst removal who presents for evaluation of 10 hours of palpitations and 2-3 hours of swallowing discomfort. She endorses associated nausea. She denies chest pain, trouble breathing, anxiety, vomiting, diarrhea, dysuria, hematuria, or changes in sensation/strength. She has not tried taking anything for her symptoms. Meds: Denies SH: Social EtOH, Denies tobacco or illicit drug use 04/12/19 20:21 Past History - Past Medical History Allergies/Adverse Reactions: Allergies Allergy/AdvReac Type Severity Reaction Status Date / Time No Known Drug Allergies Allergy Verified 04/12/19 20:09 Home Medications: Ambulatory Orders Cyclobenzaprine HCl [Flexeril 10 mg] 10 mg PO HS #9 tablet 01/02/19 Ibuprofen [Motrin -] 800 mg PO Q6H #30 tablet 01/02/19 Tramadol HCl 50 mg PO Q6H #15 tablet MDD 200 mg 01/02/19 Anemia: No Asthma: No Cancer: No Cardiac Disorders: Yes (IRREGULAR HRT BEAT AFTER NASAL SEPTUM REPAIR NO FURTHER PROBLEMS) CVA: No COPD: No CHF: No Dementia: No Diabetes: No GI Disorders: No Disorders: No HTN: No Hypercholesterolemia: No Liver Disease: No Seizures: No Thyroid Disease: Yes (HYPERTHYROIDISM) - Surgical History Abdominal Surgery: Yes (CYST NEAR PANCREAS REMOVED-02/2015) Appendectomy: No Cardiac Surgery: No Cholecystectomy: No Lung Surgery: No Neurologic Surgery: No Orthopedic Surgery: No - Immunization History Immunization Up to Date: No - Psycho Social/Smoking Cessation Hx Smoking History: Never smoked Have you smoked in the past 12 months: No Number of Cigarettes Smoked Daily: 40 If you are a former smoker, when did you quit?: 2006 Cigars Per Day: 0 Hx Alcohol Use: Yes (OCCASIONALLY) Drug/Substance Use Hx: No Substance Use Type: Alcohol Hx Substance Use Treatment: No Review of Systems - Review of Systems Able to Perform ROS?: Yes Comments:: GENERAL/CONSTITUTIONAL: No fever or chills. No weakness HEAD, EYES, EARS, NOSE AND THROAT: No change in vision. No change in hearing. No sore throat CARDIOVASCULAR: No chest pain or shortness of breath RESPIRATORY: Denies cough, hemoptysis GASTROINTESTINAL: No vomiting, diarrhea or constipation GENITOURINARY: No dysuria, frequency, or change in urination MUSCULOSKELETAL: No joint or muscle swelling or pain. No neck or back pain SKIN: No rash NEUROLOGIC: No headache, vertigo, loss of consciousness, or change in strength/sensation ENDOCRINE: No increased thirst. No abnormal weight change HEMATOLOGIC/LYMPHATIC: No anemia, easy bleeding, or history of blood clots ALLERGIC/IMMUNOLOGIC: No hives or skin allergy 04/12/19 20:20 Is the patient limited Kuwaiti proficient: No *Physical Exam - Vital Signs Last Vital Signs Temp Pulse Resp BP Pulse Ox 97.5 F L 79 18 169/81 98 04/12/19 20:06 04/12/19 20:06 04/12/19 20:06 04/12/19 20:06 04/12/19 20:06 - Physical Exam GENERAL: Awake, alert, and oriented to person/place/time, in no acute distress HEAD: No signs of trauma, normocephalic, atraumatic EYES: PERRLA, EOMI, sclera anicteric, conjunctiva clear ENT: Hearing grossly normal, nares patent, oropharynx clear without exudates. Moist mucosa LUNGS: No distress, speaks in full sentences, clear to auscultation bilaterally HEART: Regular rate and rhythm, normal S1 and S2, no murmurs appreciated, peripheral pulses normal and equal bilaterally ABDOMEN: Soft, nontender, normoactive bowel sounds. No guarding, no rebound EXTREMITIES: Normal inspection, Normal range of motion, no edema. No clubbing or cyanosis NEUROLOGICAL: Cranial nerves II through XII grossly intact. Normal speech, normal gait, no focal sensorimotor deficits SKIN: Warm, Dry 04/12/19 20:20 ED Treatment Course - LABORATORY CBC & Chemistry Diagram: 04/12/19 21:00 04/12/19 21:00 Medical Decision Making - Medical Decision Making The pt is a 53F w/ a history of anxiety, s/p HYS, s/p BTL, s/p pancreatic cyst removal who presents for evaluation of 10 hours of palpitations and 2-3 hours of swallowing discomfort. ED Course CMP, CBC, Trop I, TSH, D-dimer CXR ECG ECG w/ NSR; HR 72; QTc 422; No axis deviation; no OSCAR 04/12/19 20:37 CXR, ED staff read, no PNA, no effusion, no PNX Lytes unremarkable No anemia No leukocytosis No CLAUDIA LFTs unremarkable D-dimer wnl TSH elevated, will obtain free T4 Pt w/ TAVARES and nausea -Will give Ofirmev and Reglan 04/12/19 23:23 Free T4 wnl 04/12/19 23:28 Results discussed with patient Pt feels improved at this time Plan for D/C w/ PCP f/u Discharge instructions and return precautions given Patient in agreement and verbalized understanding Dispo: Home 04/12/19 23:48 Discharge - Discharge Information Problems reviewed: Yes Clinical Impression/Diagnosis: Palpitations Condition: Stable - Admission No - Follow up/Referral Referrals: Raysa Leung MD [Primary Care Provider] - - Patient Discharge Instructions Patient Printed Discharge Instructions: DI for Palpitations Additional Instructions: You were seen in the Emergency Department for evaluation of palpitations your labs and imaging were overall unremarkable. Review the handout provided at discharge. Follow up with your primary care provider within the week. Return to the Emergency Department if you develop fevers, chest pain, trouble breathing, vomiting, worsening symptoms, or any new/concerning symptoms. - Post Discharge Activity Work/Back to School Note: Back to Work
[2019-04-12] MEDS ORDERED: LACTATED RINGERS SOLUTION 1000 ML INFUS.BAG IV ONE (20:31)
[2019-04-12] MEDS ORDERED: ONDANSETRON 4 MG/2 ML VIAL IVPUSH ONE (20:31)
--- NOTE | 2019-04-12 20:44 | PDOC ---
Documentation entered by Chad Constantino SCRIBE, acting as scribe for Mary Jackson DO. Mary Jackson DO: This documentation has been prepared by the Dougie mcrae Daniel, SCRIBE, under my direction and personally reviewed by me in its entirety. I confirm that the documentation accurately reflects all work, treatment, procedures, and medical decision making performed by me. Attending Attestation - Resident Resident Name: KencharleneHomer - ED Attending Attestation I have performed the following: I have examined & evaluated the patient, The case was reviewed & discussed with the resident, I agree w/resident's findings & plan, Exceptions are as noted - HPI HPI: 04/12/19 21:28 The patient is a 53 year old female with a past medical history of anxiety, hysterectomy, bilateral tubal ligation, and pancreatic cyst removal here today for evaluation of palpitations. She states that she has had palpitations for 10 hours and notes associated swallowing discomfort for 2-3 hours and nausea. She notes having palpitations in past during anxiety attacks but states that she is not having an anxiety attack now. Patient denies headache, lightheadedness. Denies fever, chills. Denies chest pain, shortness of breath. Denies vomiting, diarrhea, abdominal pain. Allergies: NKDA PCP: Raysa Leung - Physicial Exam PE: 04/12/19 21:35 Constitutional: Awake, alert, oriented. No acute distress. Head: Normocephalic. Atraumatic Eyes: PERRL. EOMI. Conjunctivae are not pale. ENT: Mucous membranes are moist and intact. Posterior pharynx without exudates or erythema. Uvula midline. Neck: Supple. Full ROM. No lymphadenopathy. Cardiovascular: Regular rate. Regular rhythm. S1, S2 regular. Distal pulses are 2+ and symmetric. Pulmonary/Chest: No evidence of respiratory distress. Clear to auscultation bilaterally No wheezing, rales or rhonchi. Abdominal: Soft and non-distended. There is no tenderness. No rebound, guarding or rigidity. No organomegaly. No palpable masses. Good bowel sounds. Back: No CVA tenderness. Musculoskeletal: No edema. No cyanosis. No clubbing. Full range of motion in all extremities. No calf tenderness. Radial/pedal pulses are intact and 2+ bilaterally Skin: Skin is warm and dry. No petechiae. No purpura. Neurological: Alert and oriented to person, place, and time. Cranial nerves II-XII are grossly intact. Normal speech. Strength is grossly symmetric. No sensory deficits. Psychiatric: Good eye contact. Normal interaction, affect and behavior. - Medical Decision Making 04/12/19 20:44 I, Dr. Mary Jackson, DO, attest that this document has been prepared under my direction and personally reviewed by me in its entirety. I further attest, that it accurately reflects all work, treatment, procedures and medical decision-making performed by me. 04/12/19 21:43 a/p: 53yo female with palpitations - currently feeling them since 9am today -pt states she feels an extra beat in her chest -no cp -no sob -has assoc nausea, no vomiting and a feeling of difficulty swallowing - but pt tolerating secretions and has been eating and drinking water all day -will send labs, ekg, dimer - recent travel to [place] and [place], brother with recent heart attack -pt currently in nad -will monitor and reassess 04/12/19 23:33 free t4 normal elevated tsh neg dimer and trop electrolytes reviewed 04/12/19 23:48 pt feeling better concerned because her brother had an NE 2 weeks ago resident discussed labs and imaging answered all questions stable for dc to home and follow up with pmd Heart Score/ECG Review - ECG Intrepretation Comment:: 04/12/19 20:44 sinus at 72, nl axis, nl interval, no acute st/t wave findings
[2019-04-12] MEDS ORDERED: ONDANSETRON 4 MG/2 ML VIAL ONE (20:58)
[2019-04-12 21:55] LABS: BASO % 0.8 % (0-2.0); EOS % 2.5 % (0-4.5); HEMATOCRIT 37.8 % (32.4-45.2); HEMOGLOBIN 12.4 GM/dL (10.7-15.3); LYMPH % 27.7 % (8-40); MCH 29.6 pg (25.7-33.7); MCHC 32.8 g/dl (32.0-36.0); MEAN CELL VOLUME 90.3 fl (80-96); MEAN PLT VOLUME 10.1 fl (7.5-11.1); MONO % 9.8 % (3.8-10.2); NEUT % 59.2 % (42.8-82.8); PLATELET COUNT 274 K/MM3 (134-434); RBC 4.19 M/mm3 (3.60-5.2); RDW 13.8 % (11.6-15.6); WHITE BLOOD COUNT 5.6 K/mm3 (4.0-10.0)
[2019-04-12 22:53] LABS: ALK PHOS 91 U/L (45-117); ANION GAP 5 MMOL/L (8-16); BILIRUBIN,TOTAL 0.3 mg/dL (0.2-1); BLOOD UREA NITROGEN 14.6 mg/dL (7-18); CALCIUM 9.3 mg/dL (8.5-10.1); CHLORIDE 107 mmol/L (98-107); CO2 28 mmol/L (21-32); CREATININE 0.9 mg/dL (0.55-1.3); GLUCOSE,RANDOM 88 mg/dL (74-106); POTASSIUM 4.1 mmol/L (3.5-5.1); SGOT/AST 12 U/L (15-37); SGPT/ALT 25 U/L (13-61); SODIUM 140 mmol/L (136-145); TOT PROT 7.8 g/dl (6.4-8.2)
[2019-04-12] MEDS ORDERED: METOCLOPRAMIDE HCL INJECTION 10 MG/2 ML VIAL IVPB ONE (23:07)
[2019-04-12] MEDS ORDERED: ACETAMINOPHEN 1000 MG/100 ML VIAL (NON FORMULARY) IVPB ONE (23:07)
[2019-04-12] MEDS ORDERED: ACETAMINOPHEN INJECTION 100 ML IVPB ONE (23:40)
[2019-04-12] MEDS ORDERED: METOCLOPRAMIDE HCL INJECTION 10 MG/2 ML VIAL ONE (23:40)
[2019-04-13 00:40] VITALS: BP 134/89; PULSE 75
--- NOTE | 2019-04-13 11:12 | EKG ---
Test Reason : Blood Pressure : / mmHG Vent. Rate : 072 BPM Atrial Rate : 072 BPM P-R Int : 164 ms QRS Dur : 090 ms QT Int : 386 ms P-R-T Axes : 064 068 062 degrees QTc Int : 422 ms NORMAL SINUS RHYTHM WHEN COMPARED WITH ECG OF 26-NOV-2014 14:02, NO SIGNIFICANT CHANGE WAS FOUND Confirmed by ZAKIA ROBLEDO MD ([id number]) on 04/13/2019 11:11:59 AM Referred By: Confirmed By:ZAKIA ROBLEDO MD
== END 2019-04-13 00:49 | disposition home or self-care (01) ==
LOC: JER 20:05
PROC: 3E033NZ Introduction of Analgesics, Hypnotics, Sedatives into Peripheral Vein, Percutaneous Approach (ICD-10-PCS; principal; 2019-04-12)
PROC: 3E033GC Introduction of Other Therapeutic Substance into Peripheral Vein, Percutaneous Approach (ICD-10-PCS; 2019-04-12)
PROC: 3E033GC Introduction of Other Therapeutic Substance into Peripheral Vein, Percutaneous Approach (ICD-10-PCS; 2019-04-12)
DX: R00.2 Palpitations (principal); E05.90 Thyrotoxicosis, unspecified without thyrotoxic crisis or storm; F41.9 Anxiety disorder, unspecified; Z90.710 Acquired absence of both cervix and uterus; Z98.51 Tubal ligation status; K86.2 Cyst of pancreas; Z98.890 Other specified postprocedural states
CPT/HCPCS: 36415; 71046-TC-FY; 80053; 84439; 84443; 84484; 85025; 85379; 93005; 93010; 99285-25; J0131

== ENCOUNTER 2019-10-10 23:15 | Emergency (ER) | payer BC, OTHER ==
[2019-10-10 23:53] VITALS: BP 147/86; PULSE 85; TEMP 98.4; BMI 35.4
--- NOTE | 2019-10-11 00:26 | PDOC ---
*Physical Exam - Vital Signs Last Vital Signs Temp Pulse Resp BP Pulse Ox 98.4 F 85 18 147/86 97 10/10/19 23:50 10/10/19 23:50 10/10/19 23:50 10/10/19 23:50 10/10/19 23:50 ED Treatment Course - LABORATORY CBC & Chemistry Diagram: 10/11/19 00:50 10/11/19 00:50 Medical Decision Making - Medical Decision Making 10/11/19 00:25 Patient seen by the advanced practice provider under my supervision. Ancillary testing reviewed as necessary. I agree with plan as outlined by the advanced practice provider. Discharge - Discharge Information Problems reviewed: Yes Clinical Impression/Diagnosis: Facial twitching Condition: Stable Disposition: HOME - Follow up/Referral Referrals: Jasson Malagon MD [Staff Physician] - ON STAFF,NOT [Primary Care Provider] - - Patient Discharge Instructions Additional Instructions: You are here today for facial twitching . We did lab work and imaging, found that you are in no emergent concern for now. You tests are negative except for high TSH level. Please follow up with your PCP and neurologist Please come back if you experienced worsening symptoms of facial twitching, nausea, vomiting, lethargy. I gave you our director religious education neurologist. You can call them or tell your PCP to refer a neurologist. - Post Discharge Activity Work/Back to School Note: Back to Work
--- NOTE | 2019-10-11 00:30 | PDOC ---
History of Present Illness - General Chief Complaint: Pain Stated Complaint: FACE TWICHING Time Seen by Provider: 10/11/19 00:16 History Source: Patient Exam Limitations: No Limitations - History of Present Illness Initial Comments: 10/11/19 00:27 Patient is a 54-year-old female with past medical history of arthritis only who presents to the ED with upper lip twitching for the last 2 to 3 days. She states it started with her left side but has now progressed to the right side. She states the twitching is so often that she is unable to keep her lips still. She began to get nervous so she came to the ED for evaluation. She did not speak to her primary doctor about this problem. She denies any fevers or chills. She denies any slurred speech. She has not taken anything for symptoms. The patient states that this is never happened to her before. Past History - Medical History Allergies/Adverse Reactions: Allergies Allergy/AdvReac Type Severity Reaction Status Date / Time No Known Drug Allergies Allergy Verified 10/10/19 23:53 Home Medications: Ambulatory Orders Cyclobenzaprine HCl [Flexeril 10 mg] 10 mg PO HS #9 tablet 01/02/19 Ibuprofen [Motrin -] 800 mg PO Q6H #30 tablet 01/02/19 Tramadol HCl 50 mg PO Q6H #15 tablet MDD 200 mg 01/02/19 Anemia: No Asthma: No Cancer: No Cardiac Disorders: Yes (IRREGULAR HRT BEAT AFTER NASAL SEPTUM REPAIR NO FURTHER PROBLEMS) CVA: No COPD: No CHF: No Dementia: No Diabetes: No GI Disorders: No Disorders: No HTN: No Hypercholesterolemia: No Liver Disease: No Seizures: No Thyroid Disease: Yes (HYPERTHYROIDISM) - Surgical History Abdominal Surgery: Yes (CYST NEAR PANCREAS REMOVED-02/2015) Appendectomy: No Cardiac Surgery: No Cholecystectomy: No Lung Surgery: No Neurologic Surgery: No Orthopedic Surgery: No - Reproductive History Is Patient Now?: No - Immunization History Immunization Up to Date: No - Psycho-Social/Smoking History Smoking History: Never smoked Have you smoked in the past 12 months: No Number of Cigarettes Smoked Daily: 40 If you are a former smoker, when did you quit?: 2007 Cigars Per Day: 0 Information on smoking cessation initiated: No - Substance Abuse Hx (Audit-C & DAST Scrn) How often the patient has a drink containing alcohol: Never Score: In Men: 4 or > Positive; In Women: 3 or > Positive: 0 Screen Result (Pos requires Nsg. Audit-10AR): Negative In the last yr the pt used illegal drug/Rx for NonMed reason: No Score: Yes response is considered Positive: 0 Screen Result (Positive result requires Nsg. DAST-10): Negative Review of Systems - Review of Systems Comments:: 10/11/19 00:28 - Review of Systems Able to Perform ROS?: Yes Constitutional: No: Fever, Chills, Loss of Appetite, Night Sweats, Weakness HEENTM: No: Eye Pain, Vision changes, Ear Pain, Throat Pain, Throat Swelling, Mouth Pain, Difficulty Swallowing; positive: Right upper lip twitching Respiratory: No: Cough, Shortness of Breath, Wheezing, Sputum Production Cardiac (ROS): No: Chest Pain, Chest Tightness, Palpitations, Irregular Heart Beat, Edema ABD/GI: No: Nausea, Vomiting, Abdominal Pain, Diarrhea : No Dysuria, No Hematuria, No Frequency, No Urgency Musculoskeletal: No: Muscle Pain, Back Pain, Joint Pain, Muscle Weakness, Neck Pain Integumentary: No: Lesions, Rash Neurological: No: Headache, Numbness, Tingling, Weakness, Speech Difficulties *Physical Exam - Vital Signs Last Vital Signs Temp Pulse Resp BP Pulse Ox 98.4 F 85 18 147/86 97 10/10/19 23:50 10/10/19 23:50 10/10/19 23:50 10/10/19 23:50 10/10/19 23:50 - Physical Exam 10/11/19 00:28 - Physical Exam General Appearance: Nourished, Appropriately Dressed, No Distress HEENT: EOMI, Normal Voice, No Pharyngeal Erythema, No Muffled/Hoarse voice, No Tonsillar Exudate, No Tonsillar Erythema, No Nasal Congestion, No Rhinorrhea, Hearing Grossly Normal, TMs Normal, No TM Bulging, No TM Dullness, No TM Erythema; significant active twitching of the right upper lip appreciated while the patient is at rest and while talking. Negative [place] sign. Neck: Supple, No Lymphadenopathy (R), No Lymphadenopathy (L), No Rigidity, No Decreased range of motion Respiratory/Chest: Lungs Clear, Normal Breath Sounds. No Respiratory Distress, No Accessory Muscle Use Cardiovascular: Regular Rhythm, Regular Rate, S1, S2 Gastrointestinal/Abdominal: Normal Bowel Sounds, Soft. Non-tender, No Guarding, No Rebound, No Rigidity Musculoskeletal: Normal Inspection. No Decreased Range of Motion Extremity: Normal Capillary Refill, Normal Inspection Integumentary: Normal Color, Dry. 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 Plan: -We will check labs including electrolytes to assess for an electrolyte abnormality that could be causing this -Will reassess 10/11/19 01:42 The patient's labs are still pending. After discussion with Dr. Cowan, will order a CT head for further evaluation. The patient has been endorsed to Dr. Cowan for further evaluation and treatment. The patient is stable at time of endorsement. Discharge - Discharge Information Problems reviewed: Yes Clinical Impression/Diagnosis: Facial twitching Condition: Stable - Follow up/Referral Referrals: ON STAFF,NOT [Primary Care Provider] - - Patient Discharge Instructions - Post Discharge Activity
[2019-10-11 01:42] LABS: BASO % 0.6 % (0-2.0); EOS % 2.1 % (0-4.5); HEMATOCRIT 37.7 % (32.4-45.2); HEMOGLOBIN 12.4 GM/dL (10.7-15.3); LYMPH % 23.8 % (8-40); MCH 29.7 pg (25.7-33.7); MEAN CELL VOLUME 90.1 fl (80-96); MEAN PLT VOLUME 10.2 fl (7.5-11.1); MONO % 7.5 % (3.8-10.2); PLATELET COUNT 270 K/MM3 (134-434); RBC 4.18 M/mm3 (3.60-5.2); RDW 13.6 % (11.6-15.6); WHITE BLOOD COUNT 6.1 K/mm3 (4.0-10.0)
[2019-10-11 02:05] LABS: BILIRUBIN,TOTAL 0.3 mg/dL (0.2-1); BLOOD UREA NITROGEN 17.4 mg/dL (7-18); CALCIUM 9.1 mg/dL (8.5-10.1); CREATININE 0.9 mg/dL (0.55-1.3); MAGNESIUM 2.3 mg/dL (1.8-2.4); POTASSIUM 3.8 mmol/L (3.5-5.1); TOT PROT 7.2 g/dl (6.4-8.2)
--- NOTE | 2019-10-11 03:46 | PDOC ---
*Physical Exam - Vital Signs Last Vital Signs Temp Pulse Resp BP Pulse Ox 98.4 F 85 18 147/86 97 10/10/19 23:50 10/10/19 23:50 10/10/19 23:50 10/10/19 23:50 10/10/19 23:50 ED Treatment Course - LABORATORY CBC & Chemistry Diagram: 10/11/19 00:50 10/11/19 00:50 - ADDITIONAL ORDERS Additional order review: Laboratory Results 10/11/19 00:50 Sodium 140 Potassium 3.8 Chloride 106 Carbon Dioxide 26 Anion Gap 8 BUN 17.4 Creatinine 0.9 Est GFR (CKD-EPI)AfAm 85.20 Est GFR (CKD-EPI)NonAf 73.51 Random Glucose 109 H Calcium 9.1 Magnesium 2.3 Total Bilirubin 0.3 AST 17 ALT 27 Alkaline Phosphatase 90 Total Protein 7.2 Albumin 4.0 TSH 4.45 H Thyroxine (T4) 7.5 10/11/19 00:50 RBC 4.18 MCV 90.1 MCHC 33.0 RDW 13.6 MPV 10.2 Neutrophils % 66.0 Lymphocytes % 23.8 Monocytes % 7.5 Eosinophils % 2.1 Basophils % 0.6 Medical Decision Making - Medical Decision Making 10/11/19 03:46 CT head is negative for brain bleed or mass. High TSH of 4.8---> hypothyroidism. Calcium is normal. Will follow up with neuro and PCP Discharge - Discharge Information Problems reviewed: Yes Clinical Impression/Diagnosis: Facial twitching Condition: Stable Disposition: HOME - Follow up/Referral Referrals: ON STAFF,NOT [Primary Care Provider] - Jasson Malagon MD [Staff Physician] - - Patient Discharge Instructions Additional Instructions: You are here today for facial twitching . We did lab work and imaging, found that you are in no emergent concern for now. You tests are negative except for high TSH level. Please follow up with your PCP and neurologist Please come back if you experienced worsening symptoms of facial twitching, nausea, vomiting, lethargy. I gave you our data conversion developer neurologist. You can call them or tell your PCP to refer a neurologist. - Post Discharge Activity Work/Back to School Note: Back to Work
== END 2019-10-11 04:02 | disposition home or self-care (01) ==
LOC: JER 23:15
DX: R25.3 Fasciculation (principal)
CPT/HCPCS: 36415; 70450-TC; 80053; 83735; 84436; 84443; 85025; 99284-25